=== PATIENT | female | born 2000 | race Two or more races ===

== ENCOUNTER 2020-09-15 22:35 | Emergency (ER) | payer MEDICAID ==
[~2020-09-15] VITALS: Ht 167.6 cm; Wt 65.3 kg
[2020-09-16 02:45] VITALS: BP 100/59
[2020-09-16] MEDS ORDERED: ACETAMINOPHEN 325 MG TAB PO ONE (05:00)
[2020-09-16] MEDS ORDERED: ONDANSETRON ODT 4 MG TAB PO ONE (05:00)
== END 2020-09-16 05:16 | disposition home or self-care (01) ==
LOC: ER 22:47
DX: S01.81XA Laceration without foreign body of other part of head, initial encounter (principal); Y28.8XXA Contact with other sharp object, undetermined intent, initial encounter; Y93.89 Activity, other specified; Y92.89 Other specified places as the place of occurrence of the external cause; Y99.8 Other external cause status
CPT/HCPCS: 12013; 81025; 99283; Q0162